=== PATIENT | male | born 1970 | race African-American/Black ===

== ENCOUNTER 2017-09-02 22:46 | Emergency (ER) | payer OTHER | END 2017-09-03 00:58 | disposition home or self-care (01) | LOC: ERS 22:46 | DX: L03.311 Cellulitis of abdominal wall (principal); Z86.718 Personal history of other venous thrombosis and embolism; Z86.711 Personal history of pulmonary embolism; F17.210 Nicotine dependence, cigarettes, uncomplicated | CPT/HCPCS: 93005; 99406 ==

== ENCOUNTER 2017-11-30 10:32 | Outpatient (CLI) | payer OTHER ==
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
[2017-11-30] MEDS ORDERED: Sodium Chloride 0.9% 15 ML NEB ONE (14:27)
== END 2017-11-30 10:33 | disposition home or self-care (01) ==
LOC: WCC 10:32
PROVIDERS: ATTEND Family Medicine
DX: I87.313 Chronic venous hypertension (idiopathic) with ulcer of bilateral lower extremity (principal); L97.819 Non-pressure chronic ulcer of other part of right lower leg with unspecified severity; L97.829 Non-pressure chronic ulcer of other part of left lower leg with unspecified severity; G83.9 Paralytic syndrome, unspecified; I10 Essential (primary) hypertension; I82.403 Acute embolism and thrombosis of unspecified deep veins of lower extremity, bilateral; Z86.711 Personal history of pulmonary embolism; E11.9 Type 2 diabetes mellitus without complications
CPT/HCPCS: 11042; 36416; 99203; A4218; G0463

== ENCOUNTER 2017-12-07 08:32 | Outpatient (CLI) | payer OTHER ==
--- NOTE | 2017-12-07 10:16 | PRG ---
DATE OF SERVICE: 12/07/2017 HISTORY: Mr. Rita Swartz is a very pleasant 47-year-old gentleman who presents to the [facility] for evaluation of venous ulcerations of the right and left medial lower legs. The patient previous ly stated that he had had ulcerations of his lower extremities present on an intermittent basis since 1990. He stated that the ulceration of his right medial lower leg had been present for 3 years. He stated that the ulceration of his left medial lower leg had been present for 2 years. He stated mickey t he had been treating the venous ulcerations by cleansing with hydrogen peroxide followed by Betadin e or iodine. He stated that he then applied, 4 x 4s, followed by an ABD, and an Nhan bandage to the u lcerations of his right and left medial lower legs. The patient stated that in the past his ulcerati ons had responded to the previous regimen. The patient was referred to the Wound Center by Dr. Hugo walsh. After being seen in the Wound Center, the ulcerations were treated with the application of Medih oney, 4 x 4s. ABDs, Webril, and 3M Coban 2 layer compression system. The 3M Coban 2 layer compressi on system was applied to the left lower extremity without tension. PHYSICAL EXAMINATION: VITAL SIGNS: Temperature 98.1, pulse 84, respirations 18, blood pressure 143/93. Accu-Chek 97. EXTREMITIES: An ulceration of the right medial lower leg is present which measures approximately 4.6 x 2.2 cm. An ulceration of the left medial lower leg is present which measures approximately 1.6 x 3.7 cm. The dimensions of these wounds at the time of the patient's last visit were approximately 5. 0 x 2.1 cm and 4.0 x 1.8 cm, respectively. Granulation tissue is present within the margins of each wound, nonviable tissue present within the margins of the right medial lower leg ulceration was debri ded with an excisional full-thickness debridement. No purulent drainage is associated with either wo und. No erythema of the skin surrounding either wound is present. No maceration of the skin of the periwound of either wound is noted. A dorsalis pedis pulse is palpable on the right. A posterior ti bial pulse or dorsalis pedis pulse is not palpable on the left. A dorsalis pedis pulse is faintly au dible by Doppler on the left. A posterior tibial pulse is not audible by Doppler on the left. Less edema of the right and left feet and lower legs is present on exam today than at the time of the celina ent's last visit. ASSESSMENT AND PLAN: 1. Chronic venous hypertension with ulcers. The patient has a history of deep venous thrombosis and pulmonary embolism followed by bilateral lower extremity deep venous thromboses Medihoney, 4 x 4s. ABDs, Webril and the 3M Coban 2-layer compression system will be applied to the ulcerations today. T he 3M Coban 2-layer compression system will be applied to the left lower extremity without tension. The patient is to return to the Wound Center in 1 week for a dressing change. I will see Mr. Swartz a gain in 2 weeks. 2. History of deep venous thrombosis/pulmonary embolus. 3. Left foot paralysis. 4. Hypertension. 5. Bilateral lower extremity deep venous thromboses subsequent to initial deep venous thrombosis and pulmonary embolus. 6. Diabetes mellitus. The patient's Accu-Chek in clinic today is 97. The patient has been reminded that for optimal wound healing, his blood glucoses should remain below 150.
[2017-12-08] MEDS ORDERED: Sodium Chloride 0.9% 15 ML NEB ONE (18:55)
[2017-12-08] MEDS ORDERED: Lidocaine 2% Jelly 5 ML TUBE ONE (18:55)
== END 2017-12-07 08:33 | disposition home or self-care (01) ==
LOC: WCC 08:32
PROVIDERS: ATTEND Family Medicine
DX: I87.313 Chronic venous hypertension (idiopathic) with ulcer of bilateral lower extremity (principal); E11.622 Type 2 diabetes mellitus with other skin ulcer; L97.929 Non-pressure chronic ulcer of unspecified part of left lower leg with unspecified severity; L97.919 Non-pressure chronic ulcer of unspecified part of right lower leg with unspecified severity; G83.14 Monoplegia of lower limb affecting left nondominant side; Z86.718 Personal history of other venous thrombosis and embolism
CPT/HCPCS: 36416; A4218

== ENCOUNTER 2017-12-15 08:39 | Outpatient (CLI) | payer OTHER ==
[2017-12-18] MEDS ORDERED: Sodium Chloride 0.9% 15 ML NEB ONE (13:35)
== END 2017-12-15 08:40 | disposition home or self-care (01) ==
LOC: WCC 08:39
PROVIDERS: ATTEND Family Medicine
DX: I87.313 Chronic venous hypertension (idiopathic) with ulcer of bilateral lower extremity (principal)
CPT/HCPCS: 29581; 36416

== ENCOUNTER 2018-01-04 08:33 | Outpatient (CLI) | payer OTHER ==
--- NOTE | 2018-01-04 09:39 | PRG ---
DATE OF SERVICE: 01/04/2018 HISTORY: Mr. Rita Swartz is a very pleasant 47-year-old gentleman who presents to the Wound Ce nter for evaluation of venous ulcerations of the right and left medial lower legs. The patient previ ously stated that he had had ulcerations of his lower extremities present on an intermittent basis si 1990. He stated that the ulceration of his right medial lower leg had been present for 3 years. He stated that the ulceration of his left medial lower leg had been present for 2 years. He stated that he had been treating the venous ulcerations by cleansing with hydrogen peroxide followed by Beta dine or iodine. He stated that he then applied 4 x 4s, followed by an ABD, and an Nhan bandage to the ulcerations of his right and left medial lower legs. The patient stated that in the past his ulcera tions had responded to the previous regimen. The patient was referred to the Wound Center by Dr. Anatoly oliver. After being seen in the Wound Center, the ulcerations were treated with the application of Med ihoney, 4 x 4s, ABDs, Webril, and 3M Coban 2 layer compression system. The 3M Coban 2 layer compress ion system was applied to the left lower extremity without tension. PHYSICAL EXAMINATION: VITAL SIGNS: Temperature 97.8, pulse 91, respirations 21, blood pressure 171/105. Accu-Chek 154. EXTREMITIES: An ulceration of the right medial lower leg is present which measures approximately 4.7 x 2.0 cm. An ulceration of the left medial lower leg is present which measures approximately 4.1 x 1.6 cm. Granulation tissue is present within the margins of each wound. Nonviable tissue present wi thin the margins of the right medial lower leg ulceration was debrided with an excisional full-thickn ess debridement. No purulent drainage is associated with either wound. No erythema of the skin surr ounding either wound is present. No maceration of the skin of the periwound of either wound is noted . A dorsalis pedis pulse is palpable on the right. A dorsalis pedis or posterior tibial pulse is no t palpable on the left. No significant edema of the right and left feet or lower legs is present on exam today. ASSESSMENT AND PLAN: 1. Chronic venous hypertension with ulcers. The patient has a history of deep venous thrombosis and pulmonary embolism followed by bilateral lower extremity deep venous thrombosis. Medihoney, 4 x 4s, ABDs, Webril, and 3M Coban 2-layer compression system will be applied to the ulcerations today. The 3M Coban 2-layer compression system will be applied to the left lower extremity without tension. Th e patient is to discontinue the dressings applied in clinic today in 1 week and begin dressing change s of Medihoney, 4 x 4s, ABDs and Nhan bandages every other day after cleansing and irrigation. I will see Mr. Swartz again in 2 weeks. The patient understands and is in agreement with the preceding thee tment plan. 2. History of deep venous thrombosis/pulmonary embolus. 3. Left foot paralysis. 4. Hypertension. 5. Bilateral lower extremity deep venous thromboses subsequent to initial deep venous thrombosis and pulmonary embolus. 6. Diabetes mellitus. The patient's Accu-Chek in clinic today is 154. The patient has been reminde d that for optimal wound healing, his blood glucoses should remain below 150.
== END 2018-01-04 08:34 | disposition home or self-care (01) ==
LOC: WCC 08:33
PROVIDERS: ATTEND Family Medicine
DX: I87.313 Chronic venous hypertension (idiopathic) with ulcer of bilateral lower extremity (principal); E11.622 Type 2 diabetes mellitus with other skin ulcer; L97.929 Non-pressure chronic ulcer of unspecified part of left lower leg with unspecified severity; L97.919 Non-pressure chronic ulcer of unspecified part of right lower leg with unspecified severity; G83.14 Monoplegia of lower limb affecting left nondominant side; I82.403 Acute embolism and thrombosis of unspecified deep veins of lower extremity, bilateral; I26.99 Other pulmonary embolism without acute cor pulmonale
CPT/HCPCS: 11042; 36416

== ENCOUNTER 2018-01-18 08:21 | Outpatient (CLI) | payer OTHER ==
--- NOTE | 2018-01-18 09:03 | PRG ---
DATE OF SERVICE: 01/18/2018 HISTORY: Mr. Rita Swartz is a very pleasant 47-year-old gentleman who presents to the Wound Center for evaluation of venous ulcerations of the right and left medial lower legs. The patient pr eviously stated that he had had ulcerations of his lower extremity present on an intermittent basis s 1990. He stated that the ulceration of his right medial lower leg had been present for 3 years. He stated that the ulceration of his left medial lower leg have been present for 2 years. He state d that he had been treating the venous ulcerations by cleansing with hydrogen peroxide followed by Be tadine or iodine. He stated that he then applied, 4 x 4s, followed by an ABD, and an Nhan bandage to the ulcerations of his right and left medial lower legs. The patient stated that in the past his ulc erations have responded to the previous regimen. The patient was referred to the Wound Center by Dr. Cullen. After being seen in the Wound Center, the ulcerations were treated with the application of Medihoney, 4 x 4s, ABDs, Webril, and the 3M Coban 2 layer compression system. The 3M Coban 2 laye r compression system was applied to the left lower extremity without tension. PHYSICAL EXAMINATION: VITAL SIGNS: Temperature 97.5, pulse 94, respirations 18, blood pressure 155/98. Accu-Chek 117. EXTREMITIES: An ulceration of the right medial lower leg is present which measures approximately 4.7 x 2.2 cm. An ulceration of the left medial lower leg is present which measures approximately 3.9 x 1.6 cm. Granulation tissue is present within the margins of each wound. Nonviable tissue present wi thin the margins of the right medial lower leg ulceration was debrided with an excisional full-thickn ess debridement with the use of a curette. No purulent drainage is associated with either wound. No erythema of the skin surrounding either wound is present. No maceration of the skin of the periwoun d of either wound is noted. A dorsalis pedis pulse is palpable on the right. A dorsalis pedis or po sterior tibial pulse is not palpable on the left. No significant edema of the right and left feet or lower legs is present on exam today. ASSESSMENT AND PLAN: 1. Chronic venous hypertension with ulcers. The patient has a history of deep venous thrombosis and pulmonary embolism followed by bilateral lower extremity deep venous thrombosis. Medihoney, 4 x 4s, ABDs, Webril, and the 3M Coban two-layer compression system will be applied to the ulcerations today . The 3M Coban two-layer compression system will be applied to the left lower extremity without tens ion. The patient is to discontinue the dressings applied in clinic today in 1 week and begin dressin g changes of Medihoney, 4 x 4s, ABDs, and Nhan bandages every other day after cleansing and irrigation . The patient will utilize his own compression device in conjunction with the preceding dressing aamir nges. I will see Mr. Swartz again in two weeks. 2. History of deep venous thrombosis/pulmonary embolus. 3. Left foot paralysis. 4. Hypertension. 5. Bilateral lower extremity deep venous thromboses subsequent to initial deep venous thrombosis and pulmonary embolus. 6. Diabetes mellitus. The patient's Accu-Chek in clinic today is 117. The patient has been reminde d that for optimal wound healing, his blood glucoses should remain below 150.
== END 2018-01-18 08:22 | disposition home or self-care (01) ==
LOC: WCC 08:21
PROVIDERS: ATTEND Family Medicine
DX: I87.333 Chronic venous hypertension (idiopathic) with ulcer and inflammation of bilateral lower extremity (principal); E11.622 Type 2 diabetes mellitus with other skin ulcer; L97.929 Non-pressure chronic ulcer of unspecified part of left lower leg with unspecified severity; L97.919 Non-pressure chronic ulcer of unspecified part of right lower leg with unspecified severity; G83.9 Paralytic syndrome, unspecified; I82.403 Acute embolism and thrombosis of unspecified deep veins of lower extremity, bilateral; I26.99 Other pulmonary embolism without acute cor pulmonale
CPT/HCPCS: 29581; 36416

== ENCOUNTER 2018-02-01 09:09 | Outpatient (CLI) | payer OTHER ==
--- NOTE | 2018-02-01 10:13 | PRG ---
DATE OF SERVICE: 02/01/2018 HISTORY: Mr. Rita Swartz is a very pleasant 47-year-old gentleman who presents to the Wound Center for evaluation of venous ulcerations of the right and left lower legs. The patient previousl y stated that he had had ulcerations of his lower extremities present on an intermittent basis since 1990. He stated that the ulceration of his right medial lower leg had been present for 3 years. He stated that the ulceration of his left medial lower leg had been present for 2 years. He stated that he had been treating the venous ulcerations by cleansing with hydrogen peroxide followed by Betadine or iodine. He stated that he then applied 4 x 4s, followed by an ABD, and an Nhan bandage to the ulc erations of his right and left medial lower legs. The patient stated that in the past, his ulceratio ns responded to the previous regimen. The patient was referred to the Wound Center by Dr. Cullen. After being seen in the Wound Center, the ulcerations were treated with the application of Medihone y, 4 x 4s, ABDs, Webril, and the 3M Coban 2 layer compression system. The 3M Coban 2 layer compressi on system was applied to the left lower extremity without tension. PHYSICAL EXAMINATION: VITAL SIGNS: Temperature 97.5, pulse 87, respirations 22, blood pressure 176/103, Accu-Chek 115. EXTREMITIES: An ulceration of the right medial lower leg is present which measures approximately 4.7 x 2.0 cm. The dimensions of the wound at the time of the patient's last visit were approximately 4. 7 x 2.2 cm. An ulceration of the left medial lower leg is present which measures approximately 3.8 x 1.6 cm. Granulation tissue is present within the margins of each wound. Nonviable tissue present w ithin the margins of the right medial lower leg ulceration was debrided with an excisional full-thick ness debridement with the use of a curette. No purulent drainage is associated with either wound. N o erythema of the skin surrounding either wound is present. No maceration of the skin of the periwou nd of either wound is noted. A dorsalis pedis pulse is palpable on the right. A dorsalis pedis puls e is not palpable on the left. No significant edema of the right or left foot or lower legs is prese nt on exam today. ASSESSMENT AND PLAN: 1. Chronic venous hypertension with ulcers. The patient has a history of deep venous thrombosis and pulmonary embolism followed by bilateral lower extremity deep venous thromboses. Medihoney, 4 x 4s, ABDs, Webril, and the 3M Coban two-layer compression system will be applied to the ulcerations today . The 3M Coban two-layer compression system will be applied to the left lower extremity without tens ion. The patient is to discontinue the dressings applied in clinic today in 1 week and begin dressin g changes of Medihoney, 4 x 4s, ABDs, and Nhan bandages every other day after cleansing and irrigation . The patient is to utilize his own compression device in conjunction with the preceding dressing ch anges. I will see Mr. Swartz again in two weeks. 2. History of deep venous thrombosis/pulmonary embolus. 3. Left foot paralysis. 4. Hypertension. 5. Bilateral lower extremity deep venous thromboses subsequent to initial deep venous thrombosis and pulmonary embolus. 6. Diabetes mellitus. Patient's Accu-Chek in clinic today is 115. The patient has been reminded th at for optimal wound healing, his blood glucoses should remain below 150.
[2018-02-01] MEDS ORDERED: Lidocaine 2% Jelly 5 ML TUBE ONE (17:55)
[2018-02-01] MEDS ORDERED: Sodium Chloride 0.9% 15 ML NEB ONE (17:55)
== END 2018-02-01 09:10 | disposition home or self-care (01) ==
LOC: WCC 09:09
PROVIDERS: ATTEND Family Medicine
DX: E11.622 Type 2 diabetes mellitus with other skin ulcer (principal); I87.303 Chronic venous hypertension (idiopathic) without complications of bilateral lower extremity; I10 Essential (primary) hypertension; G83.89 Other specified paralytic syndromes; Z86.718 Personal history of other venous thrombosis and embolism
CPT/HCPCS: 36416; A4218

== ENCOUNTER 2018-06-14 08:19 | Outpatient (CLI) | payer OTHER ==
--- NOTE | 2018-06-14 09:39 | PRG ---
DATE OF SERVICE: 06/14/2018 SUBJECTIVE: Mr. Rita Swartz is a very pleasant 48-year-old gentleman, who presents to the Wound Center for evaluation of venous ulcerations of the right and left lower legs. Previously, the patient stated that he had had ulcerations of his lower extremities present on an intermittent basis since 1990. He stated that the ulceration of his right medial lower leg has been present for 3 years. He stated that the ulceration of his left medial lower leg have been present for 2 years. He stated that he had been treating the venous ulcerations by cleansing with hydrogen peroxide followed by Betadine or iodine. He stated that he then applied 4x4s, followed by an ABD and an Nhan bandage to the ulcerations of his right and left medial lower legs. The patient stated that in the past his ulcerations responded to the previous regimen. The patient was referred to the Wound Center by Dr. Shaikh. After being seen in the Wound Center, the ulcerations were treated with the application of Medihoney, 4x4s, ABDs, Webril, and 3M Coban 2-layer compression system. The 3M Coban 2-layer compression system was applied to the left lower extremity without tension. OBJECTIVE: VITAL SIGNS: Temperature 98.0, pulse 100, respirations 18, blood pressure 129/68. Accu-Chek 117. EXTREMITIES: An ulceration of the right medial lower leg is present, which measures approximately 3.2 x 1.8 cm. The dimensions of the wound at the time of the patient's last visit were approximately 4.7 x 2.0 cm. An ulceration of the left medial lower leg is present which measures approximately 1.3 x 3.6 cm. The dimensions of the wound at the time of the patient's last visit were approximately 3.8 x 1.6 cm. Granulation tissue is present within the margins of each wound. Nonviable tissue present within the margins of the right medial lower leg ulceration was debrided with an excisional full-thickness debridement with the use of a curette, desiccated tissue at the periphery of the wound was excised with the use of scissors. No purulent drainage is associated with either wound. No erythema of the skin surrounding either wound is present. No maceration of the skin of the periwound of either wound is noted. A dorsalis pedis pulse is palpable on the right. The dorsalis pedis pulse is not palpable on the left. No significant edema of the right or left foot or lower legs is present on exam today. ASSESSMENT AND PLAN: 1. Chronic venous hypertension with ulcers. The patient has a history of deep venous thrombosis and pulmonary embolism followed by bilateral lower extremity deep venous thromboses. Medihoney, 4x4s, ABDs, Webril, and 3M Coban 2-layer Compression system will be applied to the ulcerations today. The 3M Coban 2-layer Compression System will be applied to the left lower extremity without tension. The patient is to discontinue the dressings applied in clinic today in one week and begin dressing changes of Medihoney, 4x4s, ABDs, and Nhan bandages every other day after cleansing and irrigation. I will see Mr. Swartz again in 2 weeks. 2. History of deep venous thrombosis/pulmonary embolism. 3. Left foot paralysis. 4. Hypertension. 5. Bilateral lower extremity deep venous thromboses subsequent to initial deep venous thrombosis and pulmonary embolus. 6. Diabetes mellitus. The patient's Accu-Chek in clinic today is 117. The patient has been reminded that for optimal wound healing, his blood glucoses should remain below 115. Job ID: [id number]
[2018-06-14] MEDS ORDERED: Lidocaine 2% PF 100 mg/5 ml Syringe ONE (15:00)
[2018-06-14] MEDS ORDERED: Sodium Chloride 0.9% 15 ML NEB ONE (15:00)
== END 2018-06-14 08:20 | disposition home or self-care (01) ==
LOC: WCC 08:19
PROVIDERS: ATTEND Family Medicine
DX: I87.313 Chronic venous hypertension (idiopathic) with ulcer of bilateral lower extremity (principal); E11.622 Type 2 diabetes mellitus with other skin ulcer; L97.929 Non-pressure chronic ulcer of unspecified part of left lower leg with unspecified severity; L97.919 Non-pressure chronic ulcer of unspecified part of right lower leg with unspecified severity; I10 Essential (primary) hypertension; I82.403 Acute embolism and thrombosis of unspecified deep veins of lower extremity, bilateral; Z86.711 Personal history of pulmonary embolism; G81.94 Hemiplegia, unspecified affecting left nondominant side
CPT/HCPCS: 29581; 36416; A4218; J2001

== ENCOUNTER 2018-07-05 08:42 | Outpatient (CLI) | payer OTHER ==
[~2018-07-05 08:42] MED LIST: Lidocaine 2% PF 100 mg/5 ml Syringe ONE; Sodium Chloride 0.9% 15 ML NEB ONE
--- NOTE | 2018-07-05 09:23 | PRG ---
DATE OF SERVICE: 07/05/2018 HISTORY: Mr. Rita Swartz is a very pleasant 48-year-old gentleman, who presents to [facility] for evaluation of venous ulcerations of the right and left lower legs. The patient previously stated that he had had ulcerations of his lower extremities present on an intermittent basis since 1990. He stated that the ulceration of his right medial lower leg had been present for 3 years. He stated that the ulceration of his left medial lower leg have been present for 2 years. He stated that he had been treating the venous ulcerations by cleansing with hydrogen peroxide followed by Betadine or iodine. He stated that he then applied 4x4s, followed by an ABD and then Nhan bandage to the ulcerations of his right and left medial lower leg. The patient stated that in the past, his ulcerations responded to the previous regimen. The patient was referred to the [facility]ound [facility] by Dr. Shaikh. After being seen in the [facility]ound Center, the ulcerations were treated with the application of Medihoney, 4x4s, ABDs, Webril, and the 3M Coban 2-layer compression system. The 3M Coban 2-layer compression system was applied to the left lower extremity without tension. OBJECTIVE: VITAL SIGNS: Temperature 97.9, pulse 104, respirations 20, blood pressure 147/81. EXTREMITIES: An ulceration of the right medial lower leg is present which measures approximately 3.8 x 1.9 cm. The dimensions of the wound at the time of the patient's last visit were approximately 3.2 x 1.8 cm. An ulceration of the left medial lower leg is present, which measures approximately 3.6 x 1.0 cm. The dimensions of the wound at the time of the patient's last visit were approximately 1.3 x 3.6 cm. Granulation tissue is present within the margins of each wound, nonviable tissue present within the margins of the right medial lower leg ulceration was debrided with an excisional full-thickness debridement with the use of a curette. No purulent drainage is associated with either wound. No erythema of the skin surrounding either wound is present. Maceration of the skin of the periwound of both wounds is noted. A dorsalis pedis pulse is palpable on the right. A dorsalis pedis pulse is not palpable on the left. No significant edema of the right or left foot or lower legs is present on exam today. ASSESSMENT AND PLAN: 1. Chronic venous hypertension with ulcers. The patient has a history of deep venous thrombosis and pulmonary embolism followed by bilateral lower extremity deep venous thromboses. Medihoney, 4x4s, ABDs, Webril, and the 3M Coban 2-layer Compression System will be applied to the ulcerations today. The 3M Coban 2-layer Compression System will be applied to the left lower extremity without tension. The patient is to discontinue the dressings applied in clinic today in one week and begin dressing changes of Medihoney, 4x4s, ABDs, and Nhan bandages every other day after cleansing and irrigation. I will see Mr. Swartz again in 2 weeks. 2. History of deep venous thrombosis/pulmonary embolism. 3. Left foot paralysis. 4. Hypertension. 5. Bilateral lower extremity deep venous thromboses subsequent to initial deep venous thrombosis and pulmonary embolus. 6. Diabetes mellitus. Accu-Cheks will be obtained at the time of the patient's clinic visits. The patient has been reminded that for optimal wound healing, his blood glucoses should remain below 150. Job ID: [id number]
== END 2018-07-05 08:43 | disposition home or self-care (01) ==
LOC: WCC 08:42
PROVIDERS: ATTEND Family Medicine
DX: I87.013 Postthrombotic syndrome with ulcer of bilateral lower extremity (principal); E11.622 Type 2 diabetes mellitus with other skin ulcer; L97.929 Non-pressure chronic ulcer of unspecified part of left lower leg with unspecified severity; L97.919 Non-pressure chronic ulcer of unspecified part of right lower leg with unspecified severity; G83.89 Other specified paralytic syndromes; I10 Essential (primary) hypertension; Z86.73 Personal history of transient ischemic attack (TIA), and cerebral infarction without residual deficits
CPT/HCPCS: 36416; A4218; J2001

== ENCOUNTER 2018-07-20 11:01 | Outpatient (CLI) | payer OTHER ==
--- NOTE | 2018-07-20 10:49 | PRG ---
DATE OF SERVICE: 07/20/2018 HISTORY: Mr. Rita Swartz is a very pleasant 48-year-old gentleman who presents to the [facility] for evaluation of venous ulcerations of the right and left lower legs. The patient previously stated that he had had ulcerations of his lower extremities present on an intermittent basis since 1990. He stated that the ulceration of his right medial lower leg had been present for 3 years. He stated that the ulceration of his left medial lower leg had been present for 2 years. He stated that he had been treating the venous ulcerations by cleansing with hydrogen peroxide followed by Betadine or iodine. He stated that he then applied 4x4s, followed by an ABD and an Nhan bandage to the ulcerations of his right and left medial lower legs. The patient stated that in the past, his ulcerations responded to the previous regimen. The patient was referred to the Wound Center by Dr. Shaikh. After being seen in the Wound Center, the ulcerations were treated with the application of Medihoney, 4x4s, ABDs, Webril, and the 3M Coban 2-Layer Compression System. The 3M Coban 2-Layer Compression System was applied to the left lower extremity without tension. PHYSICAL EXAMINATION: VITAL SIGNS: Temperature 97.6, pulse 102, respirations 21, and blood pressure 143/88. EXTREMITIES: An ulceration of the right medial lower leg was present, which measures approximately 4.0 x 2.0 cm. The dimensions of the wound at the time of the patient's last visit were approximately 3.8 x 1.9 cm. An ulceration of the left medial lower leg was present, which measures approximately 3.6 x 1.3 cm. The dimensions of the wound at the time of the patient's last visit were approximately 3.6 x 1.0 cm. Granulation tissue was present within the margins of each wound. Nonviable tissue present within the margins of the right medial lower leg ulceration was debrided with an excisional full-thickness debridement with the use of a curette and scissors. No purulent drainage was associated with either wound. No erythema of the skin surrounding either wound was present. No maceration of the skin of the periwound of either wound was noted. A dorsalis pedis pulse is palpable on the right. A dorsalis pedis pulse is not palpable on the left. Edema of the right and left lower legs is present on exam today. Hyperkeratosis and papillomatosis are also present over the right and left feet. Circumferences of the right lower extremity at the ankle, calf, and knee are as follows; 29 cm, 46 cm, and 43 cm. Circumferences of the left lower extremity at the ankle, calf, and knee are 29 cm, 47.5 cm, and 43.5 cm. ASSESSMENT AND PLAN: 1. Chronic venous hypertension with ulcers. The patient has a history of deep venous thrombosis and pulmonary embolism followed by bilateral lower extremity deep venous thromboses. Medihoney, 4x4s, ABDs, Webril, and 3M Coban 2-Layer Compression System will be applied to the ulcerations today. The 3M Coban 2-Layer Compression System will be applied to the left lower extremity without tension. The patient is to discontinue the dressings applied in clinic today in 1 week and begin dressing changes of Medihoney, 4x4s, ABDs, and Nhan bandages every other day after cleansing and irrigation. I will see Mr. Swartz again in 2 weeks. 2. Lymphedema tarda. Arrangements will begin today for the initiation of in-home lymphedema therapy with a pneumatic pump. 3. History of deep venous thrombosis/pulmonary embolism. 4. Left foot paralysis. 5. Hypertension. 6. Bilateral lower extremity deep venous thromboses subsequent to initial deep venous thrombosis and pulmonary embolus. 7. Diabetes mellitus: Accu-Cheks will be obtained at the time of the patient's clinic visits. The patient has been reminded that for optimal wound healing and blood glucoses should remain below 150. Job ID: [id number]
[2018-07-20] MEDS ORDERED: Sodium Chloride 0.9% 15 ML NEB ONE (15:00)
[2018-07-20] MEDS ORDERED: Lidocaine 2% PF 100 mg/5 ml Syringe ONE (15:00)
== END 2018-07-20 11:02 | disposition home or self-care (01) ==
LOC: WCC 11:01
PROVIDERS: ATTEND Family Medicine
DX: E11.622 Type 2 diabetes mellitus with other skin ulcer (principal); I87.313 Chronic venous hypertension (idiopathic) with ulcer of bilateral lower extremity; L97.919 Non-pressure chronic ulcer of unspecified part of right lower leg with unspecified severity; L97.929 Non-pressure chronic ulcer of unspecified part of left lower leg with unspecified severity; I89.0 Lymphedema, not elsewhere classified; G83.9 Paralytic syndrome, unspecified; I82.403 Acute embolism and thrombosis of unspecified deep veins of lower extremity, bilateral
CPT/HCPCS: 29581; A4218; J2001